=== PATIENT | female | born 1990 | race Caucasian/White ===

== ENCOUNTER 2017-02-20 07:21 | Inpatient (IN) | payer BC ==
[2017-02-20] MEDS ORDERED: Lactated Ringers 1,000 ML IV ONE (08:33)
[2017-02-20] MEDS ORDERED: Citric Acid/Sodium Citrate Solution 30 ML Cup PO ONE ×2 (08:45→08:53)
[2017-02-20] MEDS ORDERED: Metoclopramide 10 MG/2 ML SDV IVPUSH ONE ×2 (08:45→08:53)
[2017-02-20] MEDS ORDERED: Sodium Chloride 0.9% 10 ML Syringe FLUSH PRN (08:53)
[2017-02-20] MEDS ORDERED: ceFAZolin 2 GM in Premix Bag 1 BAG IV ONE (08:53)
[2017-02-20] MEDS ORDERED: Lactated Ringers 1,000 ML IV SCH (09:00)
--- NOTE | 2017-02-20 09:07 | PCM.LDHP ---
L&D History of Present Illness - General Date of Service: 02/20/17 Admit Problem/Dx: Patient Status Order with Admit Dx/Problem 02/20/17 08:53 Patient Status [ADT] Routine Admission Diagnosis/Problem Admission Diagnosis/Problem Breech presentation 02/20/17 08:59 History 7-year-old 2 para 1001 white female admitted in active labor with spontaneous rupture of membranes this a.m now found to have marisol breech presentation. Source of Information: Patient History Limitations: Reports: No Limitations - History of Present Illness Introduction:: The patient is a 27-year-old 2 now para 1001 white female marisol breech presentation, spontaneous rupture membranes in active labor. She is to be taken for a section. The procedure, risks, benefits, alternatives of care and follow-up were discussed in detail the patient. She appears to understand and wishes to proceed. She has signed the consent form. AREA MECHANIC history: 2 para 1001. Her SHONA of 02/26/2069 is based upon early ultrasound done at 11 weeks and 4 days. A second ultrasound done on 10/13/2016 at 20-2/7 weeks gestational age supported the first ultrasound. First visit was at 11 weeks. She had regular care throughout her . She made good fundal height growth and had routine vital signs. Baby has done well. Her flu shot and T dap were given on 01/21/2017. She is group B strep negative. She had a LEEP after her first delivery. She lives in [facility]. Weight gain during the course of the was from 117.6 pounds to 162 pounds. laboratory testing shows blood to be O+ with a negative antibody screen. Her initial labs showed a hemoglobin of 12.9 g/dL. Platelets are 229,000. She is rubella immune. RPR is nonreactive. Hepatitis B and HIV asses were negative. GC and chlamydia are not available. Second trimester evaluation showed a G1 R GTT of 80. Hemoglobin is 12.4 and platelets are 208, 000. B strep screen was negative. Allergies: None Medications: vitamins 1 daily Past medical history: 1. Vaginal delivery 06/04/20158 lbs. 10 oz. male 2. Abnormal Pap smear with resultant loop excision biopsy of cervix. 3. Sports-induced asthma Past surgical history: 1. Appendectomy Family history: Parents are alive in good health. No anesthesia, bleeding, blood clot in for problems noted in the family. Social history: Patient is . is Berny. She does not using significant amounts of alcohol drugs or tobacco. 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 The graft review of systems: Skin: Negative Cardiovascular: Negative. Respiratory: Negative does have sports-induced asthma Breasts: Unremarkable. GI: Negative : Negative Extremities: Negative Physical exam last evaluation in clinic her weight is 106.4 pounds blood pressure 100/60. heart rate was 144, height is 5 feet 5 and her initial weight was 117.6 pounds. In general patient is well developed, well-nourished, pleasant female stated age in no acute distress. Is warm and dry without lesions. Lungs are clear with good breath sounds in all lung powell. Cardiovascular exam shows regular rate and rhythm and questionable mild murmur. Breast exam deferred. Abdomen is protuberant with with fundal height consistent with dates. Baby in a breech presentation by Lewis maneuver. Genital exam shows gross rupture membranes with clear amniotic fluid. The cervix is 3 cm, 100% effaced, marisol breech presentation. Extremities and neurological exam grossly within normal. - Related Data Allergies/Adverse Reactions: Allergies Allergy/AdvReac Type Severity Reaction Status Date / Time No Known Allergies Allergy Verified 06/04/15 13:48 Home Medications: Home Meds Pnv No.122/Iron/Folic Acid [ Multi Tablet] 1 each PO DAILY 06/04/15 [ History] Benzocaine/Menthol [Dermoplast Pain Relief [place]] 1 spray TOP ASDIRECTED PRN #0 canister 06/06/15 [Rx] Docusate Sodium [Colace] 100 mg PO BID PRN #0 cap 06/06/15 [Rx] Ibuprofen [Motrin] 200 - 800 mg PO Q6H PRN #0 tablet 06/06/15 [Rx] Witch Edwina [Tucks] 1 pad TOP ASDIRECTED PRN #0 pad 06/06/15 [Rx] Past Medical History - Past Health History Medical/Surgical History: Denies Medical/Surgical History Respiratory History: Reports: Asthma (sporrts induced) Gastrointestinal History: Reports: Other (See Below) AREA MECHANIC History: Reports: Dysfunctional Uterine Bleeding - Past Surgical History GI Surgical History: Reports: Appendectomy Social & Family History - Tobacco Use Smoking Status *Q: Never Smoker - Recreational Drug Use Recreational Drug Use: No H&P Review of Systems - Review of Systems: Review Of Systems: See Below L&D Exam - Exam Exam: See Below - Vital Signs Vital Signs: Last Vital Signs Temp 36.6 C 02/20/17 07:52 Pulse 82 02/20/17 07:52 Resp 18 02/20/17 07:52 BP 106/64 02/20/17 07:52 Pulse Ox 96 02/20/17 07:52 Weight: 73.624 kg - Patient Data Lab Results Last 24 hrs: Laboratory Results - last 24 hr 02/20/17 02/20/17 Range/Units 07:50 08:35 WBC 10.19 H (3.98-10.04) K/mm3 RBC 3.53 L (3.98-5.22) M/mm3 Hgb 11.0 L (11.2-15.7) gm/L Hct 32.9 L (34.1-44.9) % MCV 93.2 (79.4-94.8) fl MCH 31.2 (25.6-32.2) pg MCHC 33.4 (32.2-35.5) g/dl RDW Std Deviation 44.4 (36.4-46.3) fL Plt Count 161 L (182-369) K/mm3 MPV 10.1 (9.4-12.3) fl Neut % (Auto) 72.1 H (34.0-71.1) % Lymph % (Auto) 14.4 L (19.3-51.7) % [place] % (Auto) 11.4 (4.7-12.5) % Eos % (Auto) 1.2 (0.7-5.8) Baso % (Auto) 0.2 (0.1-1.2) % Neut # (Auto) 7.35 H (1.56-6.13) K/mm3 Lymph # (Auto) 1.47 (1.18-3.74) K/mm3 [place] # (Auto) 1.16 H (0.24-0.36) K/mm3 Eos # (Auto) 0.12 (0.04-0.36) K/mm3 Baso # (Auto) 0.02 (0.01-0.08) K/mm3 Membrane Rupture Positive H Result Diagrams: 02/20/17 08:35 Problem List Initiated/Reviewed/Updated: Yes Orders Last 24hrs: Active Orders 24 hr Category Date Time Status Patient Status [ADT] Routine ADT 02/20/17 08:53 Ordered Communication Order [RC] ROUTINE Care 02/20/17 08:53 Ordered Heart Tones [RC] PER UNIT ROUTINE Care 02/20/17 08:53 Ordered Peripheral IV Care [RC] . DIRECTED Care 02/20/17 08:54 Ordered Procedure Site Prep Instruct [RC] ASDIRECTED Care 02/20/17 08:53 Ordered Verify Patient Consent Obtain [RC] PER UNIT ROUTINE Care 02/20/17 08:53 Ordered Vital Signs [RC] PFP Care 02/20/17 08:53 Ordered Nothing Per Oral Diet [DIET] Diet 02/20/17 Breakfast Ordered TYPE AND SCREEN [BBK] Stat Lab 02/20/17 08:35 Received Citric Acid/Sodium Citrate [Bicitra Solution] Med 02/20/17 08:53 Once 30 ml PO ONETIME ONE Lactated Ringers @ 125 MLS/HR(1000ml) Med 02/20/17 09:00 Ordered Lactated Ringers [Ringers, Lactated] 1,000 ml IV ASDIRECTED Lactated Ringers [Ringers, Lactated] 1,000 ml Med 02/20/17 08:33 Active IV .BOLUS Metoclopramide [Reglan] Med 02/20/17 08:53 Once 10 mg IVPUSH ONETIME ONE Sodium Chloride 0.9% [Saline Flush] Med 02/20/17 08:53 Ordered 10 ml FLUSH ASDIRECTED PRN ceFAZolin [Ancef] 2 gm Med 02/20/17 08:53 Ordered Premix Bag 1 bag IV ONETIME Peripheral IV Insertion Adult [OM.PC] Routine Oth 02/20/17 08:53 Ordered Schedule Procedure [COMM] Per Unit Routine Oth 02/20/17 08:53 Ordered Resuscitation Status Routine Resus Stat 02/20/17 08:53 Ordered Medication Orders Citric Acid/Sodium Citrate (Bicitra Solution) 30 ml PO ONETIME ONE Stop: 02/20/17 08:54 Lactated Ringer's (Ringers, Lactated) 1,000 mls @ 999 mls/hr IV .BOLUS ONE Stop: 02/20/17 09:33 Cefazolin Sodium/Dextrose 2 gm (/ Premix) 50 mls @ 100 mls/hr IV ONETIME ONE Stop: 02/20/17 09:22 Lactated Ringer's (Ringers, Lactated) 1,000 mls @ 125 mls/hr IV ASDIRECTED [facility] Metoclopramide HCl (Reglan) 10 mg IVPUSH ONETIME ONE Stop: 02/20/17 08:54 Sodium Chloride (Saline Flush) 10 ml FLUSH ASDIRECTED PRN PRN Reason: Keep Vein Open Assessment/Plan Comment:: Assessment: 1. 39+ week intrauterine , spontaneous rupture membranes, active labor , marisol breech presentation. 2. Group B strep screen is negative. 3. Rubella immune. 4. Patient plans to breast-feed Plan: 1. Discussions held patient and concerning options of delivery with marisol breech presentation in labor or spontaneous rupture membranes. I have recommended primary . The procedure, risks, benefits, alternatives of care and follow-up were discussed in detail the patient. She presents understand and wishes to proceed. She has signed consent. 2. Laboratory testing has been done 3. Support breast-feeding incision 4. Spinal anesthesia 5. DVT prophylaxis with SCDs 6. Ancef 2 g IV preop for infection prophylaxis
[2017-02-20] MEDS ORDERED: Bupivacaine 0.5% 30 ML SDV ONE (09:13)
--- NOTE | 2017-02-20 09:17 | PCM.PREANE ---
Preanesthetic Assessment - Anesthesia/Transfusion/Family Hx Anesthesia History: Prior Anesthesia Without Reaction Family History of Anesthesia Reaction: No Transfusion History: No Prior Transfusion(s) Intubation History: Unknown - Review of Systems General: No Symptoms Pulmonary: No Symptoms Cardiovascular: No Symptoms Gastrointestinal: No Symptoms Neurological: No Symptoms - Physical Assessment NPO Status Date: 02/19/17 NPO Status Time: 20:00 Pulse: 82 O2 Sat by Pulse Oximetry: 96 Respiratory Rate: 18 Blood Pressure: 106/64 Temperature: 36.6 C Vital Signs: Last Vital Signs Temp 36.6 C 02/20/17 07:52 Pulse 82 02/20/17 07:52 Resp 18 02/20/17 07:52 BP 106/64 02/20/17 07:52 Pulse Ox 96 02/20/17 07:52 Height: 1.65 m Weight: 73.624 kg ASA Class: 2E Mental Status: Alert & Oriented x3 Airway Class: Mallampati = 2 Dentition: Reports: Normal Dentition, Caries Thyro-Mental Finger Breadths: 3 Mouth Opening Finger Breadths: 3 ROM/Head Extension: Full Lungs: Clear to Auscultation, Normal Respiratory Effort Cardiovascular: Regular Rate, Regular Rhythm, No Murmurs - Lab Values: Laboratory Last Values WBC 10.19 K/mm3 (3.98-10.04) H 02/20/17 08:35 RBC 3.53 M/mm3 (3.98-5.22) L 02/20/17 08:35 Hgb 11.0 gm/L (11.2-15.7) L 02/20/17 08:35 Hct 32.9 % (34.1-44.9) L 02/20/17 08:35 MCV 93.2 fl (79.4-94.8) 02/20/17 08:35 MCH 31.2 pg (25.6-32.2) 02/20/17 08:35 MCHC 33.4 g/dl (32.2-35.5) 02/20/17 08:35 RDW Std Deviation 44.4 fL (36.4-46.3) 02/20/17 08:35 Plt Count 161 K/mm3 (182-369) L 02/20/17 08:35 MPV 10.1 fl (9.4-12.3) 02/20/17 08:35 Neut % (Auto) 72.1 % (34.0-71.1) H 02/20/17 08:35 Lymph % (Auto) 14.4 % (19.3-51.7) L 02/20/17 08:35 [place] % (Auto) 11.4 % (4.7-12.5) 02/20/17 08:35 Eos % (Auto) 1.2 (0.7-5.8) 02/20/17 08:35 Baso % (Auto) 0.2 % (0.1-1.2) 02/20/17 08:35 Neut # (Auto) 7.35 K/mm3 (1.56-6.13) H 02/20/17 08:35 Lymph # (Auto) 1.47 K/mm3 (1.18-3.74) 02/20/17 08:35 [place] # (Auto) 1.16 K/mm3 (0.24-0.36) H 02/20/17 08:35 Eos # (Auto) 0.12 K/mm3 (0.04-0.36) 02/20/17 08:35 Baso # (Auto) 0.02 K/mm3 (0.01-0.08) 02/20/17 08:35 Membrane Rupture Positive H 02/20/17 07:50 Above labs reviewed. - Allergies Allergies/Adverse Reactions: Allergies Allergy/AdvReac Type Severity Reaction Status Date / Time No Known Allergies Allergy Verified 06/04/15 13:48 - Anesthesia Plan Pre-Op Medication Ordered: None - Acknowledgements Anesthesia Type Planned: Spinal Pt an Appropriate Candidate for the Planned Anesthesia: Yes Alternatives and Risks of Anesthesia Discussed w Pt/Guardian: Yes Pt/Guardian Understands and Agrees with Anesthesia Plan: Yes PreAnesthesia Questionnaire - Past Health History Medical/Surgical History: Denies Medical/Surgical History Other HEENT History: wears glasses Respiratory History: Reports: Asthma (sporrts induced) Gastrointestinal History: Reports: Other (See Below) GEOSPATIAL TECHNICIAN History: Reports: Dysfunctional Uterine Bleeding - Past Surgical History GI Surgical History: Reports: Appendectomy - SUBSTANCE USE Smoking Status *Q: Never Smoker Recreational Drug Use History: No - HOME MEDS Home Medications: Home Meds Pnv No.122/Iron/Folic Acid [ Multi Tablet] 1 each PO DAILY 06/04/15 [ History] Benzocaine/Menthol [Dermoplast Pain Relief [place]] 1 spray TOP ASDIRECTED PRN #0 canister 06/06/15 [Rx] Docusate Sodium [Colace] 100 mg PO BID PRN #0 cap 06/06/15 [Rx] Ibuprofen [Motrin] 200 - 800 mg PO Q6H PRN #0 tablet 06/06/15 [Rx] Witch Edwina [Tucks] 1 pad TOP ASDIRECTED PRN #0 pad 06/06/15 [Rx] - CURRENT (IN HOUSE) MEDS Current Meds: Current Medications Lactated Ringer's (Ringers, Lactated) 1,000 mls @ 999 mls/hr IV .BOLUS ONE Stop: 02/20/17 09:33 Last Admin: 02/20/17 08:10 Dose: 999 mls/hr Cefazolin Sodium/Dextrose 2 gm (/ Premix) 50 mls @ 100 mls/hr IV ONETIME ONE Stop: 02/20/17 09:22 Lactated Ringer's (Ringers, Lactated) 1,000 mls @ 125 mls/hr IV ASDIRECTED MARYA Sodium Chloride (Saline Flush) 10 ml FLUSH ASDIRECTED PRN PRN Reason: Keep Vein Open Discontinued Medications Citric Acid/Sodium Citrate (Bicitra Solution) 30 ml PO ONETIME ONE Stop: 02/20/17 08:46 Last Admin: 02/20/17 09:11 Dose: 30 ml Citric Acid/Sodium Citrate (Bicitra Solution) 30 ml PO ONETIME ONE Stop: 02/20/17 08:54 Metoclopramide HCl (Reglan) 10 mg IVPUSH ONETIME ONE Stop: 02/20/17 08:46 Last Admin: 02/20/17 09:10 Dose: 10 mg Metoclopramide HCl (Reglan) 10 mg IVPUSH ONETIME ONE Stop: 02/20/17 08:54
[2017-02-20] MEDS ORDERED: Morphine PF 10 MG/10 ML SDV ONE (09:26)
[2017-02-20] MEDS ORDERED: Oxytocin 10 Units/1 ML SDV ONE (09:44)
[2017-02-20] MEDS ORDERED: Phenylephrine 1% 10 MG/ML SDV ONE (09:44)
[2017-02-20] MEDS ORDERED: Ketorolac 30 MG/ML SDV ONE (09:44)
[2017-02-20] MEDS ORDERED: ceFAZolin 1 GM Vial ONE (09:44)
[2017-02-20] MEDS ORDERED: Ondansetron 4 MG/2 ML SDV ONE (09:44)
[2017-02-20] MEDS ORDERED: Lactated Ringers 1,000 ML ONE (09:44)
[2017-02-20] MEDS ORDERED: fentaNYL 100 MCG/2 ML SDV IVPUSH PRN (09:59)
[2017-02-20] MEDS ORDERED: Meperidine PF 50 MG/ML Syringe IVPUSH PRN (09:59)
[2017-02-20] MEDS ORDERED: HYDROmorphone 0.5 MG/0.5 ML Syringe IVPUSH PRN (09:59)
[2017-02-20] MEDS ORDERED: diphenhydrAMINE 50 MG/ML SDV IVPUSH PRN ×2 (09:59→12:01)
[2017-02-20] MEDS ORDERED: Ondansetron 4 MG/2 ML SDV IVPUSH PRN (09:59)
[2017-02-20] MEDS ORDERED: ePHEDrine 50 MG/ML SDV IVPUSH PRN ×2 (09:59→12:01)
--- NOTE | 2017-02-20 10:38 | PCM.POSTAN ---
POST ANESTHESIA ASSESSMENT - MENTAL STATUS Mental Status: Alert - VITAL SIGNS Pulse Rate: 66 SaO2: 98 Resp Rate: 11 Blood Pressure: 92/53 Temperature: 36.5 C - RESPIRATORY Respiratory Status: Respiratory Rate WNL, Airway Patent, O2 Saturation Stable - CARDIOVASCULAR CV Status: Pulse Rate WNL, Blood Pressure Stable - GASTROINTESTINAL GI Status: No Symptoms - POST OP HYDRATION Hydration Status: Adequate & Stable
--- NOTE | 2017-02-20 10:43 | PCM.OPNOTE ---
- General Post-Op/Procedure Note Date of Surgery/Procedure: 02/20/17 Operative Procedure(s): Primary lower uterine segment transverse section through Pfannenstiel skin incision Findings: Baby is in a marisol breech presentation with back to the left. Amniotic fluid was clear. Three-vessel cord. Uterus tubes ovaries consistent with term . Cervix is dilated 3 cm-adequate to allow egress of blood. Pre Op Diagnosis: 39-2/7 week intrauterine , spontaneous rupture membranes, marisol breech presentation Post-Op Diagnosis: Same with delivery of a viable, cagle, marisol breech presenting female infant with Apgars of 8 and 9, a weight of 8 lbs. 2 oz. at 1003 hrs. on 02/20/2017 Anesthesia Technique: Spinal Other Anesthesia Type: Marcaine 0.5%20 mLlocal Primary Surgeon: Jesu Fisher Secondary Surgeon: Juan Carlos Hall Anesthesia Provider: Isidra Brooks Macaroni Maker: Zenia Olson Reason Macaroni Maker Was Necessary: Retraction, quality of care, patient safety Role of Macaroni Maker: Retraction Fluid Replacement, Intraop: 750 Output, Urine Amount: 200 Drain/Tube Comments:: Indwelling bladder catheter Complications: None Condition: Good Free Text/Narrative:: Surgery duration: 32 minutes Compilations: None Procedure: Patient was transferred to the room and placed in a sitting position. Spinal anesthesia was administered. After confirmation of adequate anesthesia patient was placed in a supine position with a wedge under her right side to facilitate left lateral positioning. The patient was prepped and draped in usual fashion after Malik catheter was already placed . The anesthetic was checked and found to be adequate. 20 mL of Marcaine 0.5% was injected locally in the Pfannenstiel incision site. The Pfannenstiel skin incision was then made carried down to skin subcutaneous and fascial layers. The fascia was then undermined superiorly and inferiorly to allow for adequate operating room the recti muscles midline and preperitoneal fat was bluntly dissected. Peritoneal cavity was entered longitudinally. The vesicouterine peritoneum was then incised transversely and bladder flap was developed. Myometrium was incised transversely to the level of the amniotic sac. This incision was extended bilaterally in a blunt fashion. The amniotic sac was then ruptured resulting clear amniotic fluid. A hand is placed in the low uterine segment and the baby's breech was brought forth through the incision. The baby was completely delivered using fundal pressure and the marisol breech delivery extraction technique. The nose and mouth were bulb suctioned. Baby's cord was clamped x2 cut and baby was handed off to attending refuge worker Dr forman. Placenta was expressed after cord blood was obtained. Uterus was then exteriorized to allow for easier closure. The cervix was assessed and found to be dilated adequately to allow egress of blood. The uterus was closed in 2 layers. The first layer a running locked suture of 0 Monocryl, the second layer a running locked vertical mattress suture of 0 Monocryl. 2 [id number] suture was placed at the mid area of the incision to control bleeders. Hemostasis confirmed at this time. Sponge instrument needle counts are correct. The uterus was returned to the abdominal cavity and lateral gutters were cleared of blood. Once again sponge needle counts are correct. The anterior abdominal wall was closed with a #1 PDS suture from angle to angle. The subcutaneous area was found to be free of any bleeders. .Skin was closed with a running subcuticular stitch of 3-0 Monocryl in a vertical mattress suture fashion using a Dre needle. Prineo mesh/glue was then applied to further approximate the incision. It should be noted that patient received 2 g of Ancef preoperatively for infection prophylaxis and had Pitocin infused after delivery of the placenta to facilitate uterine contraction. She also had sequential compression stockings in place for DVT prophylaxis. Patient was discharged from the operating room in satisfactory condition.
[2017-02-20] MEDS ORDERED: Ondansetron 4 MG/2 ML SDV IV PRN (12:01)
[2017-02-20] MEDS ORDERED: Lanolin 100% Cream 7 GM Tube TOP PRN (12:01)
[2017-02-20] MEDS ORDERED: Dextrose 5%-Lactated Ringers 1,000 ML IV SCH (12:01)
[2017-02-20] MEDS ORDERED: Naloxone 0.4 MG/ML SDV IVPUSH PRN (12:01)
[2017-02-20] MEDS ORDERED: Docusate Sodium 100 MG Cap PO PRN (12:01)
[2017-02-20] MEDS: Simethicone 80 MG Tab.Chew PO SCH ×3 (14:22→22:02)
[2017-02-20] MEDS: Ibuprofen 800 MG Tab PO SCH (18:30)
--- NOTE | 2017-02-20 18:33 | PCM48HPAN ---
Post Anesthesia Note - EVALUATION WITHIN 48HRS OF ANESTHETIC Vital Signs in Normal Range: Yes Patient Participated in Evaluation: Yes Respiratory Function Stable: Yes Airway Patent: Yes Cardiovascular Function Stable: Yes Hydration Status Stable: Yes Pain Control Satisfactory: Yes Nausea and Vomiting Control Satisfactory: Yes Mental Status Recovered: Yes
[2017-02-21] MEDS: Ibuprofen 800 MG Tab PO SCH ×3 (02:38→18:00)
[2017-02-21] MEDS: Acetaminophen/oxyCODONE 325-5 MG Tab PO PRN ×3 (06:24→19:54)
[2017-02-21] MEDS: Simethicone 80 MG Tab.Chew PO SCH ×4 (09:31→23:12)
--- NOTE | 2017-02-21 10:58 | PCM.SN ---
- Free Text/Narrative Note: Patient is who is post-op day 1. section was performed. Patient handled surgery well. She is experiencing some soreness, but has been ambulating. Surgical incision is dry, intact, with no erythematous changes. She does have a systolic murmur noted on cardiac exam that was present on initial exam. Lungs are clear to auscultation. Rest of focused exam is unremarkable. Possible post-op complications and wound care was discussed. Will continue to monitor patient
[2017-02-22] MEDS: Ibuprofen 800 MG Tab PO SCH ×2 (02:08→09:40)
[2017-02-22] MEDS: Acetaminophen/oxyCODONE 325-5 MG Tab PO PRN ×2 (02:08→06:05)
--- NOTE | 2017-02-22 07:07 | PCM.DCSUM1 ---
Discharge Summary - Hospital Course Free Text/Narrative:: Mahamed is a 27-year-old 2 para 1001 white female who was admitted on with spontaneous rupture membranes, in active labor and with the baby in a marisol breech presentation. Please see admission history and physical for details. She was taken to surgery on 02/20/17 at 39+ weeks gestational age having SHONA of 02/26/2017. Please see operative report for details. She had a primary low uterine segment transverse section through Pfannenstiel skin incision. She delivered a cagle, viable, female in a marisol breech presentation. Baby weighed 8 lbs. 2 oz., had Apgars of 8 and 9 and delivered at 1003 hrs. on 02/20/2017. Postoperatively pain was controlled with Duramorph and spinal block along with ibuprofen. She was switched to Percocet and ibuprofen on the first postoperative day. She made good bowel, bladder and ambulatory recovery. She is nursing without problems. Incision appears to be healing well, vital signs been stable and patient has had no concerns in the postoperative period she has minimal lochia and pain is well-controlled. CBC was within normal limits considering she had surgery. She is desiring discharge home today. - Discharge Data Discharge Date: 02/22/17 Discharge Disposition: Home, Self-Care 01 Condition: Good - Patient Summary/Data Operative Procedure(s) Performed: Primary lower uterine segment transverse section through Pfannenstiel skin incision - Patient Instructions Diet: Regular Diet as Tolerated (Nursing diet with increase calories and calcium as recommended) Activity: As Tolerated (No lifting greater than 15 pounds nor driving a car 1 week. No intercourse or tampons until seen back in clinic.) Driving: Do Not Drive Showering/Bathing: May Shower, No Tub Bathing/Swimming (For 1 week) Notify Provider of: Fever, Increased Pain, Swelling and Redness, Drainage - Discharge Plan Home Medications: Home Meds Pnv No.122/Iron/Folic Acid [ Multi Tablet] 1 each PO DAILY 06/04/15 [ History] Acetaminophen/oxyCODONE [Percocet 325-5 MG] 2 tab PO Q4H PRN tablet 02/22/17 [ Rx] Docusate Sodium [Colace] 100 mg PO Q12H PRN cap 02/22/17 [Rx] Ibuprofen [IJD: Ibuprofen] 600 mg PO Q4H PRN #30 tablet 02/22/17 [Rx] Referrals: Reggie Restrepo MD [Primary Care Provider] - (Return to clinic6 weeksDrAna Restrepo Should have the mesh removed in 2 weeks in clinic.) - Discharge Summary/Plan Comment DC Time >30 min.: No Discharge Summary/Plan Comment: Discharge instructions: 1. Discharge home 2. Diet, activity and follow-up discussed with patient. Recommend nursing diet with increased calories and calcium. 3. Precautions given concern increased pain, bleeding, temperature, signs/ symptoms of DVT/PE. 4. Medications per home medication was printed, discussed with and given to the patient. 5. Return to clinic-Dr. Restrepo[facility] in 6 weeks. Remove the mesh in 2 weeks in clinic. Diagnosis: Term -delivered Condition: Good - Patient Data Vitals - Most Recent: Last Vital Signs Temp 36.8 C 02/22/17 04:17 Pulse 70 02/22/17 04:17 Resp 16 02/22/17 04:17 BP 105/75 02/22/17 04:17 Pulse Ox 98 02/21/17 06:32 Weight - Most Recent: 73.624 kg I&O - Last 24 hours: Intake & Output 02/21/17 02/22/17 02/22/17 22:59 06:59 14:59 Intake Total 180 Output Total 900 Balance -720 Med Orders - Current: Current Medications Diphenhydramine HCl (Benadryl) 25 mg IVPUSH Q6H PRN PRN Reason: Itching or Nausea Docusate Sodium (Colace) 100 mg PO Q12H PRN PRN Reason: Constipation Emollient Ointment (Lansinoh Hpa) 0 gm TOP ASDIRECTED PRN PRN Reason: Sore Nipples Ephedrine Sulfate (Ephedrine Sulfate) 5 mg IVPUSH SEECOMMENT PRN PRN Reason: Other Ibuprofen (Motrin) 800 mg PO Q8H MARYA Last Admin: 02/22/17 02:08 Dose: 800 mg Naloxone HCl (Narcan) 0.1 mg IVPUSH SEECOMMENT PRN PRN Reason: Respiratory Depression Ondansetron HCl (Zofran) 4 mg IV Q4H PRN PRN Reason: Nausea/Vomiting Oxycodone/Acetaminophen (Percocet 325-5 Mg) 2 tab PO Q4H PRN PRN Reason: Pain (moderate 4-6) Last Admin: 02/22/17 06:05 Dose: 2 tab Simethicone (Simethicone) 80 mg PO PCBED [facility] Last Admin: 02/21/17 23:12 Dose: Not Given Discontinued Medications Bupivacaine HCl (Marcaine 0.5%) Confirm Administered Dose 30 ml .ROUTE .STK-MED ONE Stop: 02/20/17 09:14 Last Admin: 02/20/17 09:59 Dose: 20 ml Cefazolin Sodium (Ancef) Confirm Administered Dose 2 gm .ROUTE .STK-MED ONE Stop: 02/20/17 09:45 Citric Acid/Sodium Citrate (Bicitra Solution) 30 ml PO ONETIME ONE Stop: 02/20/17 08:46 Last Admin: 02/20/17 09:11 Dose: 30 ml Citric Acid/Sodium Citrate (Bicitra Solution) 30 ml PO ONETIME ONE Stop: 02/20/17 08:54 Last Admin: 02/20/17 13:23 Dose: Not Given Diphenhydramine HCl (Benadryl) 25 mg IVPUSH Q6H PRN PRN Reason: pruritis Ephedrine Sulfate (Ephedrine Sulfate) 5 mg IVPUSH ASDIRECTED PRN PRN Reason: Hypotension Fentanyl (Sublimaze) 50 mcg IVPUSH Q5M PRN PRN Reason: Pain Hydromorphone HCl (Dilaudid) 0.5 mg IVPUSH Q15M PRN PRN Reason: severe pain Lactated Ringer's (Ringers, Lactated) 1,000 mls @ 999 mls/hr IV .BOLUS ONE Stop: 02/20/17 09:33 Last Admin: 02/20/17 08:10 Dose: 999 mls/hr Cefazolin Sodium/Dextrose 2 gm (/ Premix) 50 mls @ 100 mls/hr IV ONETIME ONE Stop: 02/20/17 09:22 Last Admin: 02/20/17 13:23 Dose: Not Given Lactated Ringer's (Ringers, Lactated) 1,000 mls @ 125 mls/hr IV ASDIRECTED [facility] Lactated Ringer's (Ringers, Lactated) Confirm Administered Dose 1,000 mls @ as directed .ROUTE .[facility] ONE Stop: 02/20/17 09:45 Dextrose/Lactated Ringer's (Dextrose 5%-Lactated Ringers) 1,000 mls @ 125 mls/ hr IV ASDIRECTED MARYA Stop: 02/20/17 20:00 Last Admin: 02/20/17 14:22 Dose: 125 mls/hr Ketorolac Tromethamine (Toradol) Confirm Administered Dose 30 mg .ROUTE .[facility]- MED ONE Stop: 02/20/17 09:45 Meperidine HCl (Demerol) 12.5 mg IVPUSH ONETIME PRN PRN Reason: shivering Metoclopramide HCl (Reglan) 10 mg IVPUSH ONETIME ONE Stop: 02/20/17 08:46 Last Admin: 02/20/17 09:10 Dose: 10 mg Metoclopramide HCl (Reglan) 10 mg IVPUSH ONETIME ONE Stop: 02/20/17 08:54 Last Admin: 02/20/17 13:23 Dose: Not Given Ondansetron HCl (Zofran) Confirm Administered Dose 4 mg .ROUTE .[facility] ONE Stop: 02/20/17 09:45 Ondansetron HCl (Zofran) 4 mg IVPUSH ONETIME PRN PRN Reason: Nausea/Vomiting Oxytocin (Pitocin) Confirm Administered Dose 10 unit .ROUTE .[facility]-MED ONE Stop: 02/20/17 09:45 Phenylephrine HCl ([place]ell-Synephrine) Confirm Administered Dose 10 mg .ROUTE .[facility] ONE Stop: 02/20/17 09:45 Sodium Chloride (Saline Flush) 10 ml FLUSH ASDIRECTED PRN PRN Reason: Keep Vein Open *Q Meaningful Use (DIS) - VTE *Q VTE Criteria *Q: - Stroke *Q Stroke Criteria *Q: - AMI *Q AMI Criteria *Q:
[2017-02-22] MEDS: Simethicone 80 MG Tab.Chew PO SCH (09:40)
[2017-02-22 10:36] VITALS: BP 98/59
== END 2017-02-22 11:15 | disposition home or self-care (01) | DRG 540 ==
LOC: JD.OBCHECK 07:21 → JD.OB 07:21 → JD.OBCHECK 08:53 → OBSVTOIN 10:03 → JD.OB 10:03
PROVIDERS: ADMIT Obstetrics & Gynecology; ATTEND Obstetrics & Gynecology
PROC: 10D00Z1 Extraction of Products of Conception, Low, Open Approach (ICD-10-PCS; principal; 2017-02-20)
DX: O42.92 Full-term premature rupture of membranes, unspecified as to length of time between rupture and onset of labor (principal); O32.1XX0 Maternal care for breech presentation, not applicable or unspecified; Z3A.39 39 weeks gestation of pregnancy; Z37.0 Single live birth
CPT/HCPCS: 01961; 36415; 84112; 85025; 86850; 86900; 86901; 94762; A9270-GY; J0690; J1885; J2270; J2370; J2405; J2590; J2765; J7042; J7120